=== PATIENT | female | born 1990 | race Caucasian/White ===

== ENCOUNTER 2017-07-30 21:32 | Emergency (ER) | payer OTHER ==
[2017-07-30 21:43] VITALS: BP 134/90; PULSE 99; TEMP 98.9; BMI 21.2
[2017-07-30 21:45] LABS: PH,URINE 5.5 (4.5-8); URINE APPEARANCE Clear; URINE BILIRUBIN Negative (NEGATIVE); URINE GLUCOSE (UA) Negative (NEGATIVE); URINE KETONE Trace (NEGATIVE); URINE LEUK ESTERASE Negative (NEGATIVE); URINE NITRITE Negative (NEGATIVE); URINE PROTEIN Negative (NEGATIVE); URINE UROBILINOGEN 0.2 (0.2-1.0)
[2017-07-30 21:46] LABS: URINE BLOOD Trace-intact (NEGATIVE); URINE COLOR YELLOW
[2017-07-30 22:08] LABS: URINE BACTERIA FEW /hpf (NEGATIVE)
--- NOTE | 2017-07-30 22:36 | PDOC ---
History of Present Illness - General Chief Complaint: Pain Stated Complaint: R FLANK PAIN Time Seen by Provider: 07/30/17 21:40 - History of Present Illness Initial Comments: This 27-year-old woman with a history of polycystic ovary disease but no other significant medical history presents with a few hour history of right flank pain. Patient was eating dinner when she had onset of the pain. Since then, she is generally comfortable except when twisting her torso or reaching up with her right arm. Pain is not pleuritic and patient denies shortness of breath/ cough; no nausea/vomiting/diarrhea. No fever or chills. No dysuria/hematuria. No history of kidney stones or gallbladder pathology. No history of trauma to the area; patient did lift heavy packages today. Past History - Past Medical History Allergies/Adverse Reactions: Allergies Allergy/AdvReac Type Severity Reaction Status Date / Time No Known Allergies Allergy Unverified 07/30/17 21:36 Home Medications: Ambulatory Orders Diclofenac Sodium [Voltaren -] 75 mg PO BID PRN #10 tablet. 07/30/17 Asthma: Yes Other medical history: POLYCYSTIC - Suicide/Smoking/Psychosocial Hx Smoking History: Unknown if ever smoked Have you smoked in the past 12 months: No Number of Cigarettes Smoked Daily: 0 Information on smoking cessation initiated: No Hx Alcohol Use: No Drug/Substance Use Hx: No Substance Use Type: None Review of Systems - Review of Systems Able to Perform ROS?: Yes Comments:: 12 point review of systems is negative except for what is noted in the history of present illness *Physical Exam - Vital Signs Last Vital Signs Temp Pulse Resp BP Pulse Ox 98.9 F 99 H 14 134/90 100 07/30/17 21:34 07/30/17 21:34 07/30/17 21:34 07/30/17 21:34 07/30/17 21:34 - Physical Exam Comments: GENERAL: Adult female, alert and oriented 3, in no acute distress HEAD: Normal with no signs of trauma. EYES: PERRLA, EOMI, sclera anicteric, conjunctiva clear. ENT: Ears normal, nares patent, oropharynx clear without exudates. Dry mucous membranes. NECK: Normal range of motion, supple without lymphadenopathy, JVD, or masses. LUNGS: Breath sounds equal, clear to auscultation bilaterally. No wheezes, and no crackles. HEART:Regular rate and rhythm, normal S1 and S2 without murmur, rub or gallop. ABDOMEN:.normal bowel sounds No guarding,tenderness or rebound.No masses No distention. No Ramey sign Positive tenderness right costal margin at right mid axillary line; no crepitus or step offs No CVA tenderness on either side EXTREMITIES: Normal range of motion, no edema. No clubbing or cyanosis. No erythema, or tenderness. NEUROLOGICAL: Cranial nerves II through XII grossly intact. Normal speech. No focal neurological deficits. MUSCULOSKELETAL: Back non-tender to palpation SKIN: Warm, Dry, normal turgor, no rashes or lesions noted. ED Treatment Course - ADDITIONAL ORDERS Additional order review: Laboratory Results 07/30/17 21:38 Urine Color Yellow Urine Appearance Clear Urine pH 5.5 Ur Specific [place] 1.020 Urine Protein Negative Urine Glucose (UA) Negative Urine Ketones Trace Urine Blood Trace-intact H Urine Nitrite Negative Urine Bilirubin Negative Urine Urobilinogen 0.2 Ur Leukocyte Esterase Negative Urine RBC 1-2 Urine WBC 2-3 Ur Epithelial Cells Few Urine Bacteria Few Urine HCG, Qual Negative Progress Note - Progress Note Progress Note: This otherwise healthy 27-year-old woman presents with pain, present mainly with twisting motions of her torso or reaching motions with the right upper extremity. No history of trauma or overuse, although she did exert herself lifting heavy material today. Exam shows tenderness of the costal margin; there is no true CVA or flank tenderness. Ramey sign is negative and there is no abdominal tenderness or masses. Clinical presentation most consistent with musculoskeletal origin of pain. Patient given Toradol 30 mg IM. Patient feels significant relief after Toradol 30 mg IM. Although likely that this is musculoskeletal pain, atypical pain pattern for biliary tract pathology still possible. Patient should return here she has more severe pain or experiences fever/chills. Also, she should see her general medical doctor in the near future. The importance of biliary ultrasound being performed after fasting was explained to the patient. *DC/Admit/Observation/Transfer Diagnosis at time of Disposition: Right flank pain - Discharge Dispostion Disposition: HOME Condition at time of disposition: Stable - Prescriptions Prescriptions: Diclofenac Sodium [Voltaren -] 75 mg PO BID PRN #10 tablet.dr BALL Reason: Moderate Pain - Patient Instructions Printed Discharge Instructions: DI for Flank Pain Additional Instructions: Local warmth to area of pain Avoid lifting/twisting activity for the next few days Ibuprofen/naproxen as needed for mild pain Diclofenac 75 mg twice a day for moderate to severe pain (take with food) Follow-up with your general doctor within the next 2-3 days Return to ER if you have severe pain/vomiting/fever
[2017-07-30] MEDS ORDERED: KETOROLAC TROMETHAMINE 30 MG/1 ML VIAL IM ONE (23:05)
[2017-07-30] MEDS ORDERED: KETOROLAC TROMETHAMINE 30 MG/1 ML VIAL ONE (23:27)
== END 2017-07-31 | disposition home or self-care (01) ==
LOC: FER 21:32
PROC: 3E0233Z Introduction of Anti-inflammatory into Muscle, Percutaneous Approach (ICD-10-PCS; principal; 2017-07-30)
DX: R10.31 Right lower quadrant pain (principal)
CPT/HCPCS: 81003; 81015; 84703; 99282-25